=== PATIENT | male | born 1990 | race Hispanic/Latino ===

== ENCOUNTER 2025-07-19 13:42 | Emergency (ER) | payer SELFPAY ==
[~2025-07-19] VITALS: Ht 170.2 cm; Wt 148.3 kg
[2025-07-19 13:44] VITALS: TEMP 98.9
[2025-07-19] MEDS ORDERED: ACYC-138 PO (14:18)
[2025-07-19] MEDS ORDERED: KETO10TA2 PO (14:18)
[2025-07-19] MEDS ORDERED: GABA-1405 PO (14:18)
--- NOTE | 2025-07-19 14:18 | ERN ---
General Chief Complaint: Skin Rash/Abscess Stated Complaint: POSSIBLE SHINGLES Time Seen by MD: 14:00 Time Seen by Midlevel: 14:00 Source: patient History of Present Illness Initial Comments 35-year-old male with a past medical history of chickenpox presenting to the emergency department with a rash to the right flank area. Rash started several days ago in his progressively worsened. Allergies: Coded Allergies: No Known Drug Allergies (Unverified Allergy, Unknown, 07/19/25) Past Medical History Past Medical History: No Pertinent History Past Surgical History: None ROS Dictation CONSTITUTIONAL: Negative except for HPI HEAD/FACE: Negative except for HPI EENT: Negative except for HPI RESPIRATORY: Negative except for HPI GASTROINTESTINAL/ABDOMINAL: Negative except for HPI GENITOURINARY: Negative except for HPI MUSCULOSKELETAL: Negative except for HPI INTEGUMENTARY: Negative except for HPI NEUROLOGICAL/PSYCH: Negative except for HPI HEMATOLOGIC/LYMPHATIC: Negative except for HPI All Systems Negative, Except as noted above. 13 point review of systems assessed and all negative except for above. Physical Exam Physical Exam Dictation Vital Signs reviewed General Appearance: Alert, oriented x 3, no acute distress, well developed, nourished. Head and Face: non-traumatic. Eyes: PERRL, pink conjunctivas, eyelid no trauma, anterior chamber with arcus senilis. Ears: Pinnas intact and no signs of trauma or erythema ear canals clear and no discharge TM no erythema Nose: No discharge, no bleeding. Oropharynx: Mouth normal, tongue pink, pharynx clear,no erythema, tonsils no exudates, no abscesses noted, mucous membrane moist Neck: Supple, non-tender, no thyromegaly, no masses, no JVD, no bruits Breast:Deferred Chest:No tenderness, no crepitus, no paradoxical movement, no retractions Lungs:Clear, well-ventilated, symmetric, no rales, no wheezing, no rhonchi, no stridor, good breath sounds bilaterally Heart: Regular rate, regular rhythm, no murmur, no gallops Vascular: no peripheral edema, Abdomen: Soft, positive bowel sounds, nondistended, no guarding, nontender, no rebound, no masses no hepatomegaly, no splenomegaly, no Sun's sign, no hernias. Rectal: Deferred Genital: Deferred Neurological: Normal speech, motor function intact, sensory function intact Musculoskeletal: Neck nontender, full range of motion, back nontender, full range of motion, Extremities: nontender, full range of motion Skin: Vesicular lesions throughout the T5 dermatomal area Lymphatic: Deferred MDM MDM: Differential diagnosis: Shingles, cellulitis, abscess There are no social concerns with this patient. Prescription drug management Prescriptions will include: Acyclovir, Toradol, gabapentin Medical management and examination interpretation discussions were had by me with other qualified healthcare professionals as indicated for the patient's care. ED Course Orders Procedure Category Date Status Time Ketorolac PHA 07/19/25 In Process Tromethamine 30mg/Ml 14:30 Dexamethasone 10mg/Ml PHA 07/19/25 Logged 1ml Vial (Dexameth 14:30 Current Medications Medications (Trade) Dose Ordered Sig/Jasmyne Route PRN Reason Start Time Stop Time Status Last Admin Dose Admin Dexamethasone Sodium Phosphate (dexaMETHasone 10MG/ML 1ML VIAL) 10 mg ONCE ONCE IM 07/19/25 14:30 07/19/25 14:31 Ketorolac Tromethamine (toRADol) 30 mg ONCE ONCE IM 07/19/25 14:30 07/19/25 14:31 Vital Signs Date Time Temp Pulse Resp B/P (MAP) Pulse Ox O2 Delivery O2 Flow Rate FiO2 07/19/25 13:44 99.0 95 22 171/112 96 Room Air 0 DX & DISP Disposition: Discharge Departure Impression: Primary Impression: Shingles Condition: Stable Scripts Gabapentin (Gabapentin) 600 Mg Tablet 1 TAB PO TID for 10 Days, #30 TAB 0 Refills Prov: SID ABDUL [facility] 07/19/25 Ketorolac Tromethamine (Ketorolac Tromethamine) 10 Mg Tablet 1 TAB PO TID for pain for 5 Days, #15 TAB 0 Refills Prov: SID ABDUL [facility] 07/19/25 Acyclovir (Acyclovir) 800 Mg Tablet 1 TAB PO 5XDAY for 7 Days, #35 TAB 0 Refills Prov: SID ABDUL [facility] 07/19/25 Time of Disposition: 14:17 I have reviewed the case, and I agree with, Diagnosis and Plan I performed the substantive portion of the visit. I have reviewed and personally made and approve the management plan that is documented in the note by myself or the VANITA. I acknowledge for responsibility for the patient's management plan. SID ABDUL Jul 19, 2025 14:18
[2025-07-19 14:26] VITALS: BP 156/90; PULSE 92; RESP 17; O2SAT 98
== END 2025-07-19 14:35 | disposition home or self-care (01) ==
LOC: EDH 13:42
DX: B02.9 Zoster without complications (principal)
CPT/HCPCS: 99284; 96372 ×2; J1885; J1100

== ENCOUNTER 2025-08-03 05:21 | Emergency (ER) | payer SELFPAY ==
[~2025-08-03] VITALS: Ht 170.2 cm; Wt 145.1 kg
--- NOTE | 2025-08-03 05:29 | NUR ---
REPORT TO [facility]
--- NOTE | 2025-08-03 06:51 | ERN ---
ED Note History of Present Illness Stated Complaint: "SHINGLES PAIN" Chief Complaint: Other Problems Time Seen by MD: 05:31 Dictation: This is a 35-year-old morbidly obese male with a BMI of 50 presented to the emergency room with complaints of severe pain in his right arm and back. He was diagnosed with herpes zoster on 07/19/2025 and was given acyclovir, gabapentin, Ketoralac and lidocaine patches. Patient stated that he has been doing all that along with the capsaicin cream, and the rash is healing but extremely sensitive with severe pain to the point of unable to tolerate even his T-shirt fabric. Temperature is 97.2 pulse 95 respirations 20 blood pressure 175/106 pulse oximetry 98% on room air Allergies: Coded Allergies: No Known Drug Allergies (Unverified Allergy, Unknown, 07/19/25) Home Meds Active Scripts Prednisone (Prednisone) 50 Mg Tablet, 50 MG PO DAILY for 5 Days, #5 TAB 0 Refills Prov:PADMA BOOTH MD 08/03/25 Gabapentin (Gabapentin) 600 Mg Tablet, 1 TAB PO TID for 10 Days, #30 TAB 0 Refills Prov:SID ABDUL 07/19/25 Ketorolac Tromethamine (Ketorolac Tromethamine) 10 Mg Tablet, 1 TAB PO TID for pain for 5 Days, #15 TAB 0 Refills Prov:SID ABDUL 07/19/25 Acyclovir (Acyclovir) 800 Mg Tablet, 1 TAB PO 5XDAY for 7 Days, #35 TAB 0 Refills Prov:SID ABDUL 07/19/25 Past Medical History Past Medical History: Other Additional Past Medical Hx: SHINGLES Surgical History: None Family History: Negative Social History: Negative RN Note Reviewed/Agreed w/PFSH: Yes Review of System Dictation Constitutional: Negative for fever,chills, and weight loss Eyes: Negative for injury, pain,redness, and discharge ENT: Negative for injury,pain or swelling Cardiovascular: Negative for chest pain, palpitations, and edema Respiratory: Negative for shortness of breath, cough, and wheezing, Abdomen/GI: Negative for abdominal pain, nausea, vomiting, diarrhea, and constipation Back: Negative for injury and pain : Negative for injury, bleeding and discharge MS/Extremity: Negative for injury and deformity Skin: Negative for rash, and discoloration severe pain along the healing vesicular rash on right side back extending to the right arm posterior aspect Neuro: Negative for headache, weakness, numbness, tingling, and seizure Psych: Negative for suicide ideation, homicidal ideation, and hallucinations Initial Vital Sign VS Vital Signs Date Time Temp Pulse Resp B/P (MAP) Pulse Ox O2 Delivery O2 Flow Rate FiO2 08/03/25 05:22 97.2 95 20 175/106 98 Room Air Physical Exam Dictation General: awake, alert, NAD extremely obese male Head/Face: Normocephalic, atraumatic Eyes: PERRL, EOMI, vision at baseline ENT: oral cavity clear, TMs clear, no signs of infection Neck: Trachea midline, supple, no nuchal rigidity Cardiovascular: RRR, normal S1/S2, No MRGs, no JVD Respiratory: CTAB, no respiratory distress, No rales or wheezes Abdomen: Soft, non-tender, non-distended, normal bowel sounds, no guarding or rebound. Skin: Warm, dry, normal turgor, healing herpes zoster rash along the T5 dermatomal distribution on the right side extending to the posterior and lateral aspect of the right arm. No evidence of any purulent drainage or induration or cellulitis. MS/Extremity: Pulses equal, no cyanosis, neurovascular intact, FROM Neuro: COAx4, GCS 15, strength 5/5, CN 2-12 intact, normal cerebellar exam, normal gait, Psych: Normal behavior, mood, and affect normal Extremities-trace edema without any palpable cords, Homans sign is negative ED Course ED Course Orders Procedure Category Date Status Time Hydromorphone 1 Mg PHA 08/03/25 Complete Inj (Dilaudid 1mg Inj 06:30 Methylprednisolone PHA 08/03/25 Complete Succ 125mg (Solu-Medr 06:30 Ketorolac PHA 08/03/25 Complete Tromethamine 30mg/Ml 06:30 Current Medications Medications (Trade) Dose Ordered Sig/Jasmyne Route PRN Reason Start Time Stop Time Status Last Admin Dose Admin Hydromorphone HCl (DiLAUDid 1MG INJ) 1 mg ONCE ONCE IVP 08/03/25 06:30 08/03/25 06:31 DC 08/03/25 06:33 Ketorolac Tromethamine (toRADol) 30 mg ONCE ONCE IVP 08/03/25 06:30 08/03/25 06:31 DC 08/03/25 06:37 Methylprednisolone Sodium Succinate (Solu-medROL 125MG) 125 mg ONCE ONCE IVP 08/03/25 06:30 08/03/25 06:31 DC 08/03/25 06:33 Vital Signs Date Time Temp Pulse Resp B/P (MAP) Pulse Ox O2 Delivery O2 Flow Rate FiO2 08/03/25 05:22 97.2 95 20 175/106 98 Room Air Medical Decision Making MDM Differential diagnosis: Post herpetic neuralgia, superimposed secondary bacterial infection, thoracic neuralgia This is a 35-year-old morbidly obese male with a BMI of 50 presented to the emergency room with complaints of severe pain in his right arm and back. He was diagnosed with herpes zoster on 07/19/2025 and was given acyclovir, gabapentin, Ketoralac and lidocaine patches. Patient stated that he has been doing all that along with the capsaicin cream, and the rash is healing but extremely sensitive with severe pain to the point of unable to tolerate even his T-shirt fabric. Temperature is 97.2 pulse 95 respirations 20 blood pressure 175/106 pulse oximetry 98% on room air We will give him a trial of a opioid along with the IV steroids. In fact steroids have been shown to reduce the post herpetic neuralgia pain even though it is somewhat late, I told the patient that I would give him a trial for the next 1 week. Since the pain is not controlled despite gabapentin NSAIDs topical lidocaine and capsaicin creams, the other option is to give a trial of amitriptyline at least at bedtime Pain still persists, may need to explore a nerve block. Previous outside records reviewed: Old ER visits. Risk of complication and/or morbidity or mortality of patient management: None Medications-Per medication reconciliation Need for hospitalization: Patient does not meet criteria for hospitalization. Need for emergency major/minor surgery: No There are no social concerns with this patient. Prescription drug management Prescriptions will include symptomatic care Patient's prior external medical records from other ER visits were reviewed by ramesh espinosa as indicated. Prior testing and results from previous visits were reviewed. Prior tests were taken into account with medical decision making and resource utilization, independent historian/historians were used to obtain complete medical history. I independently interpreted the test that were performed, results were reviewed by me and considered findings on radiology if ordered. Medical management and examination interpretation discussions were had by me with other qualified healthcare professionals as indicated for the patient's care. Problem List Problem List: (1) HZV (herpes zoster virus) post herpetic neuralgia (2) Thoracic radiculopathy due to herpes zoster (3) Herpes zoster involving thoracic dermatome DX & DISP Disposition: Discharge Departure Impression: Primary Impression: HZV (herpes zoster virus) post herpetic neuralgia Additional Impressions: Thoracic radiculopathy due to herpes zoster, Herpes zoster involving thoracic dermatome Condition: Stable Scripts Prednisone (Prednisone) 50 Mg Tablet 50 MG PO DAILY for 5 Days, #5 TAB 0 Refills Prov: PADMA BOOTH MD 08/03/25 Additional Instructions: Patient and the caregiver have been informed of all the diagnostic tests and the imaging conducted during the today's visit to the emergency room and has verbalized understanding of the results I have personally reviewed and interpreted all diagnostic exams performed here in the ER today as well as the vital signs documented by the nursing staff. The patient is now being discharged to home and should follow up with the primary care physician or the specialist as directed by the ER staff. Referrals: SELF,REFERRAL (PCP) PADMA BOOTH MD Aug 03, 2025 06:51
[2025-08-03 07:56] VITALS: BP 149/94; PULSE 88; RESP 18; TEMP 98.3; O2SAT 95
== END 2025-08-03 07:59 | disposition home or self-care (01) ==
LOC: EDH 05:21
DX: B02.29 Other postherpetic nervous system involvement (principal); M54.14 Radiculopathy, thoracic region; Z79.52 Long term (current) use of systemic steroids; Z79.899 Other long term (current) drug therapy
CPT/HCPCS: 99284; 96374; 96375; J1885; J2919; J1171